=== PATIENT | female | born 1995 | race Caucasian/White ===

== ENCOUNTER 2019-03-24 05:48 | Emergency (ER) | payer MEDICAID, OTHER ==
[~2019-03-24] VITALS: Ht 165.1 cm; Wt 81.3 kg
[2019-03-24 05:58] VITALS: BP 138/68
--- NOTE | 2019-03-24 06:04 | NUR ---
PT TAKEN TO BED 2
--- NOTE | 2019-03-24 06:08 | NUR ---
24 YO F BIB SELF C/O POSSIBLE ABSCESS TO LEFT ARMPIT X 2 WEEKS. PT STATES IT HAS GROWN LARGER OVER 2 WEEKS AND MORE PAINFUL. 8/10 PAIN. NO DRAINAGE. DENIES FEVER, NVD. PMH-- DENIES RX-- DENIES
[2019-03-24] MEDS ORDERED: LIDOCAINE 1% 500 MG/50 ML VIAL INJ SCH (06:55)
--- NOTE | 2019-03-24 07:00 | NUR ---
PT STATES "I WOULD RATHER DO ANTIBIOTICS INSTEAD OF CUTTING IT OPEN." DR. CORTEZ MADE AWARE.
[2019-03-24] MEDS ORDERED: LIDOCAINE MPF 1% - 5 mL VIAL 0 ML ONE (07:12)
[2019-03-24 07:21] VITALS: BP 138/68
== END 2019-03-24 07:21 | disposition home or self-care (01) ==
LOC: MED 05:48
DX: L02.412 Cutaneous abscess of left axilla (principal)
CPT/HCPCS: 99283; J2001

== ENCOUNTER 2019-05-07 00:59 | Emergency (ER) | payer OTHER ==
[~2019-05-07] VITALS: Ht 162.6 cm; Wt 81.6 kg
[2019-05-07 01:09] VITALS: BP 137/76
--- NOTE | 2019-05-07 01:12 | NUR ---
PT ambulated to bed 2. Providing urine.
--- NOTE | 2019-05-07 01:20 | NUR ---
24 Y/O F PRESENTS TO ER C/O EPIGASTRIC PAIN X1 MONTH. PAIN IS CONSTANT, PAIN LEVEL 10/10, BURNING. PT STATES "I HAVE NAUSEA EVERYDAY AND DIARRHEA EVERYDAY" PT STATES SHE DOES EAT ALOT OF SPICY FOODS AND DRINKS ALCOHOL. BOWEL SOUNDS ACTIVE X 4 QUADRANTS. ABDOMEN SOFT, NONTENDER TO TOUCH. NKA. NO MED HX. SAFETY MEASURES IN PLACE. ERMD AT BEDSIDE.
--- NOTE | 2019-05-07 01:22 | NUR ---
PT EVALUATED BY DR. VARGAS
[2019-05-07 01:41] LABS: BASOPHILS # (AUTO) 0.2 K/uL (0.00-0.22); BASOPHILS % (AUTO) 1.9 % (0.0-2.0); EOSINOPHILS # (AUTO) 0.1 K/uL (0-0.4); HEMATOCRIT 39.8 % (36-48); HEMOGLOBIN 13.4 g/dL (12.0-16.0); LYMPHOCYTES # (AUTO) 2.3 K/uL (2.5-16.5); LYMPHOCYTES % (AUTO) 26.9 % (20.5-51.1); MEAN CORPUSCULAR HEMOGLOBIN 28 pg (27-31); MEAN CORPUSCULAR HGB CONC 34 g/dL (33-37); MEAN CORPUSCULAR VOLUME 82.9 fL (80-94); MONOCYTES # (AUTO) 0.5 K/uL (0.8-1.0); MONOCYTES % (AUTO) 6.1 % (1.7-9.3); NEUTROPHILS # (AUTO) 5.6 K/uL (1.8-7.7); NEUTROPHILS % (AUTO) 64.1 % (42.2-75.2); PLATELET COUNT (AUTO) 235 K/uL (140-450); RED CELL DISTRIBUTION WIDTH 14.8 % (11.6-13.7); WHITE BLOOD COUNT (AUTO) 8.7 K/uL (4.8-10.8)
[2019-05-07 01:47] LABS: ANION GAP 12.4 (8-16); CARBON DIOXIDE 28.3 mmol/L (21-32); CREATININE 0.6 mg/dL (0.6-1.3); POTASSIUM 3.7 mmol/L (3.5-5.1)
[2019-05-07 01:53] LABS: ALBUMIN 3.9 g/dL (3.4-5.0); TOTAL BILIRUBIN 0.3 mg/dL (0.0-1.0)
--- NOTE | 2019-05-07 02:00 | NUR ---
PT PROVIDED URINE
--- NOTE | 2019-05-07 02:28 | NUR ---
PT TAKEN TO CT VIA WC
--- NOTE | 2019-05-07 02:28 | NUR ---
Tristan heck in [facility] - 05/07/19 at 0230 by KATIE PT GOING TO CT
[2019-05-07 02:29] LABS: APPEARANCE,URINE CLOUDY (CLEAR)
[2019-05-07 02:30] LABS: BILIRUBIN,URINE NEGATIVE (NEGATIVE); BLOOD, URINE TRACE (NEGATIVE); COLOR,URINE YELLOW (YELLOW); LEUKOCYTE ESTERASE ,URINE NEGATIVE (NEGATIVE); NITRITE, URINE NEGATIVE (NEGATIVE); UGLUCOSE NEGATIVE (NEGATIVE)
--- NOTE | 2019-05-07 02:43 | NUR ---
PT RETURNED FROM CT
[2019-05-07] MEDS ORDERED: cefTRIAXone 1,000 MG VIAL ONE (02:53)
--- NOTE | 2019-05-07 03:20 | NUR ---
PT AMBULATED TO RESTROOM
--- NOTE | 2019-05-07 03:50 | NUR ---
Patient discharged by Dr. Piper with v/s stable. Written and verbal after care instructions given and explained. Patient alert, oriented and verbalized understanding of instructions. Ambulatory with steady gait. All questions addressed prior to discharge. ID band removed. Patient advised to follow up with PMD. Rx of Macrobid 1 cap was given. Patient educated on indication of medication including possible reaction and side effects. Opportunity to ask questions provided and answered.
[2019-05-07 03:51] VITALS: BP 142/93
== END 2019-05-07 03:50 | disposition home or self-care (01) ==
LOC: MED 00:59
DX: N39.0 Urinary tract infection, site not specified (principal); F10.129 Alcohol abuse with intoxication, unspecified; R19.7 Diarrhea, unspecified
CPT/HCPCS: 36415; 74176; 80053; 81001; 81025; 82150; 83690; 85025; 87086; 87186; 96365; 99284; J0696